=== PATIENT | male | born 1945 | race Caucasian/White ===

== ENCOUNTER 2016-09-28 10:52 | Emergency (ER) | payer MEDICARE, BC ==
[~2016-09-28] VITALS: Ht 172.7 cm; Wt 83.5 kg
[2016-09-28] MEDS ORDERED: METOPROLOL SUCC25 MG ORAL (11:37)
[2016-09-28] MEDS ORDERED: OMEGA 3 1,0001 EACH PO (11:39)
[2016-09-28] MEDS ORDERED: LOSARTAN POTASS25 MG ORAL (11:39)
[2016-09-28] MEDS ORDERED: SIMVASTATIN10 MG ORAL (11:39)
[2016-09-28] MEDS ORDERED: ASPIR 8181 MG ORAL (11:39)
[2016-09-28 12:30] VITALS: BP 174/88
[2016-09-28 12:40] VITALS: BP 174/88
--- NOTE | 2016-09-28 15:17 | Emergency Room Report ---
History of Present Illness General Chief Complaint: Laceration Source: Patient Present Illness HPI 71-year-old male presents ED with laceration to forehead. States that he accidentally bumped his head into car door this morning. No reported LOC. Tetanus is up-to-date. Denies any pain. Denies any other injuries. Patient states that his blood pressure is always normal but today his blood pressure is higher than usual. Denies any headache, blurry vision, nausea or vomiting. Denies chest pain or shortness of breath. No other aggravating or relieving factors. Denies any other associated symptoms. Allergies: Coded Allergies: BLUE DYE (Verified Allergy, Unknown, 09/28/16) Patient History Past Medical History: HTN Past Surgical History: none Pertinent Family History: none Social History: Denies: alcohol use, drug use, smoking Immunizations: UTD Reviewed Nursing Documentation: PMH: Agreed, PSxH: Agreed Nursing Documentation-PMH Hx Cardiac Problems: Yes - Cardiac stent x2 Review of Systems All Other Systems: negative except mentioned in HPI Physical Exam Vital Signs Date Time Temp Pulse Resp B/P Pulse Ox O2 Delivery O2 Flow Rate FiO2 09/28/16 11:30 97.5 54 16 185/94 98 Room Air Sp02 EP Interpretation: reviewed, normal General Appearance: no apparent distress, alert, GCS 15, non-toxic Head: normocephalic, other - 1cm superficial laceration to R sided forehead Eyes: bilateral eye PERRL, bilateral eye normal inspection ENT: normal ENT inspection Neck: normal inspection Respiratory: normal inspection Cardiovascular #1: normal inspection Gastrointestinal: normal inspection Rectal: deferred Genitourinary: no CVA tenderness Musculoskeletal: normal inspection Neurologic: alert, oriented x3, responsive, motor strength/tone normal, sensory intact, speech normal Psychiatric: normal inspection Skin: normal inspection Lymphatic: normal inspection Procedures Laceration/Wound Repair Laceration/Wound Repair : Consent: Verbal Wound Location: head Wound's Depth, Shape: superficial Betadine Prep?: No Wound Debrided: minimal Wound Repaired With: Dermabond Layer Closure?: No Sterile Dressing Applied?: Yes Splint Applied?: No Sling Applied?: No Patient Tolerated: Well Complications: None Medical Decision Making Diagnostic Impression: Primary Impression: Hypertension Qualified Codes: I10 - Essential (primary) hypertension Additional Impression: Laceration ER Course Hospital Course 71-year-old M presents to ED s/p laceration forehead s/p hit head on car door. no LOC Clinical course Patient placed on stretcher. After initial history and physical , wound is irrigated. Tetanus is up-to-date. The wound is superficial and small and was repaired with Dermabond without difficulty. Blood pressure is repeated and is elevated although patient is asymptomatic. I encourage patient to followup with PMD but check his blood pressure a few more times Diagnosis - laceration, hypertension Stable and discharged to home. wound Care instructions given. Followup with PMD. Return to ED if any signs of infection develop Last Vital Signs Date Time Temp Pulse Resp B/P Pulse Ox O2 Delivery O2 Flow Rate FiO2 09/28/16 12:30 97.3 51 18 174/88 95 Room Air Status: improved Disposition: HOME, SELF-CARE Condition: Stable Referrals: NOT CHOSEN IPA/,REFERRING (PCP) Patient Instructions: Facial Laceration, [id number] MYKEL GOLDMAN M.D. Sep 28, 2016 15:17
== END 2016-09-28 12:40 | disposition home or self-care (01) ==
LOC: EMR 12:30
DX: S01.81XA Laceration without foreign body of other part of head, initial encounter (principal); W22.8XXA Striking against or struck by other objects, initial encounter; Y93.9 Activity, unspecified; Y92.9 Unspecified place or not applicable; Y99.9 Unspecified external cause status; I10 Essential (primary) hypertension; Z98.61 Coronary angioplasty status